=== PATIENT | male | born 1960 | race African-American/Black ===

== ENCOUNTER 2025-05-10 16:27 | Emergency (ER) | payer MEDICAID, OTHER ==
[~2025-05-10] VITALS: Ht 182.9 cm; Wt 77.7 kg
[~2025-05-10 16:27] MED LIST: NORPTMEDS CO; SOFTSOL XX; TIMO0.5S66 OP
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
[2025-05-10] MEDS: KETOROLAC TROMETH 30 MG/ML 1ML VIAL IM ONE (20:25)
--- NOTE | 2025-05-10 21:23 | DVH ---
CLINICAL INDICATION: Left finger pain TECHNIQUE: XY L 4TH FINGER XRAY COMPARISON: None FINDINGS/IMPRESSION: : There is no evidence of acute fracture or dislocation. There is flexion of the 5th proximal interphalangeal joint. Correlate for extensor tendon injury. Mild 1st CMC joint osteoarthritis.
--- NOTE | 2025-05-10 21:27 | DVH ---
EXAM: XY L KNEE 3V XRAY HISTORY: Pain. COMPARISON: None available. TECHNIQUE: 3 views of the left knee were performed. FINDINGS: No acute fracture or dislocation. No significant knee joint effusion. Less than 50% joint space narrowing in the medial compartment. Normal mineralization of the osseous structures. Soft tissues are unremarkable. IMPRESSION: No acute fracture or dislocation.
--- NOTE | 2025-05-10 21:28 | DVH ---
CLINICAL INDICATION: Left shoulder pain TECHNIQUE: XY L SHOULDER 2+ VIEW XRAY COMPARISON: None FINDINGS/IMPRESSION: : There is no evidence of acute fracture or dislocation. Linear scarring in the left upper lung. Mild degenerative change of the left glenohumeral joint. Visualized portions of the lungs are clear.
[2025-05-10] MEDS ORDERED: CYCL-837 PO (22:13)
[2025-05-10] MEDS ORDERED: IBUP-1456 PO (22:13)
[2025-05-10 22:24] VITALS: BP 153/114; PULSE 71; RESP 16; TEMP 98.4; O2SAT 98
== END 2025-05-10 22:25 | disposition home or self-care (01) ==
LOC: ER 16:27
DX: S40.012A Contusion of left shoulder, initial encounter (principal); S80.02XA Contusion of left knee, initial encounter; S60.042A Contusion of left ring finger without damage to nail, initial encounter; F17.210 Nicotine dependence, cigarettes, uncomplicated; Y04.0XXA Assault by unarmed brawl or fight, initial encounter; Y93.89 Activity, other specified; Y92.89 Other specified places as the place of occurrence of the external cause; Y99.8 Other external cause status
CPT/HCPCS: 73030; 73140; 73562; 96372; 99284; J1885